=== PATIENT | female | born 1970 | race Caucasian/White ===

== ENCOUNTER 2016-11-22 02:11 | Emergency (ER) | payer OTHER ==
[~2016-11-22] VITALS: Ht 165.1 cm; Wt 70.3 kg
[2016-11-22] MEDS ORDERED: LORAZEPAM1 M1 PO (02:40)
[2016-11-22] MEDS ORDERED: ESCITALOPRAM OX10 MG PO (02:41)
--- NOTE | 2016-11-22 02:42 | ED CARDIAC/CP/PALPITATIONS ---
History of Present Illness General Chief Complaint: Chest Pain Stated Complaint: " CP RADIATES TO LT SIDE OF NECK/ARM [id number] AGO" Source: patient, family Exam Limitations: no limitations Vital Signs & Intake/Output Vital Signs & Intake/Output Vital Signs Date Time Temp Pulse Resp B/P Pulse O2 O2 Flow FiO2 Ox Delivery Rate 11/22 0623 97.7 71 18 125/84 97 Room Air 11/22 0239 Room Air 11/22 0224 70 18 132/87 96 Room Air Allergies Coded Allergies: No Known Allergies (11/22/16) Reconcile Medications Escitalopram Oxalate 10 MG TABLET 10 MG PO DAILY HTN (Reported) Lorazepam 1 MG TABLET 1 MG PO DAILY ANXIETY (Reported) Triage Note: PT TO TRIAGE WITH C/O MIDSTERNAL CHEST PAIN THAT RADIATES UNDERNEATH SHOULDER AND UP NECK TO JAW. PT STATES THE PAIN WOKE HER OUT OF SLEEPING. PMH HTN. PT STATES SHE ATE DINNER AROUND 1700. PT ALSO COMPLAINS OF LIGHTHEADEDNESS. Triage Nurses Notes Reviewed? yes HPI: Patient presents for evaluation of a sudden onset of left chest pain that began while at home while asleep. Patient states the pain lasted for about 2 hours but resolved just after the EKG was taken here in the emergency department. The pain was a moderate to severe constant squeezing pain that radiated to the left side of the neck and into the left axilla. She states she had a prior episode about 3-6 months ago but did not seek care at that point. This pain was more intense than the last. She denies chest pain currently. She is being treated for hypertension. She does not smoke and she denies a family history of coronary artery disease. The pain is not reproducible with palpation. She denies associated dyspnea or diaphoresis. (VINCE FINNEGAN,ANDRY Forde) Past History Travel History Traveled to [place] past 21 day No Medical History Any Pertinent Medical History? see below for history Neurological: NONE EENT: NONE Cardiovascular: hypertension Respiratory: NONE Gastrointestinal: GERD Hepatic: NONE Renal: NONE Musculoskeletal: NONE Psychiatric: anxiety, depression Endocrine: NONE Blood Disorders: NONE Cancer(s): NONE MACHINE WELDER/Reproductive: NONE Psychosocial History What is your primary language Thai Tobacco Use: Never used Family History Hx Contributory? No (VINCE FINNEGAN,ANDRY Forde) Surgical History Surgical History: non-contributory (YORDAN ELKINS MD) Review of Systems Review of Systems Constitutional: Reports: no symptoms. EENTM: Reports: no symptoms. Respiratory: Reports: no symptoms. Cardiovascular: Reports: chest pain. GI: Reports: no symptoms. Genitourinary: Reports: no symptoms. Musculoskeletal: Reports: no symptoms. Skin: Reports: no symptoms. Neurological/Psychological: Reports: no symptoms. Hematologic/Endocrine: Reports: no symptoms. Immunologic/Allergic: Reports: no symptoms. All Other Systems: Reviewed and Negative (VINCE FINNEGAN,ANDRY Forde) Physical Exam Physical Exam Cardiovascular: see below Comments: Gen.: Well-nourished, well-developed, no acute respiratory distress. Head: Normocephalic, atraumatic. Eyes: Normal inspection bilaterally Ears: Normal inspection bilaterally Nose: Normal inspection Throat/mouth : Moist mucosa Neck: Supple, full range of motion, no goiter Heart: Regular rate and rhythm, no murmurs rubs or gallops Lungs: Clear to auscultation bilaterally with normal air entry Chest: Nontender Back: Normal range of motion Abdomen: Soft, nontender, nondistended, normal bowel sounds Extremities: Normal range of motion grossly, equal radial pulses, no cyanosis clubbing or edema, calves nontender Neurologic: Cranial nerves grossly intact, speech is clear Skin: warm and dry Psychiatric: Calm, cooperative, no apparent delusions or hallucinations (VINCE FINNEGAN,ANDRY Forde) Core Measures ACS in differential dx? Yes Severe Sepsis Present: No Septic Shock Present: No (YORDAN ELKINS MD) Progress Differential Diagnosis: AMI, musculoskeletal pain, pneumothorax, unstable angina Plan of Care: Orders Procedure Date/time Status TROPONIN LEVEL 11/22 0630 Complete EKG 11/22 0630 Active Telemetry/Label Drier 11/22 0240 Active TROPONIN LEVEL 11/22 0240 Complete MAGNESIUM 11/22 0240 Complete CBC WITHOUT DIFFERENTIAL 11/22 0240 Complete BASIC METABOLIC PANEL 11/22 0240 Complete EKG 11/22 0214 Active Laboratory Tests 11/22/16 0756: Troponin I < 0.01 11/22/16 0244: Anion Gap 9, Estimated GFR > 60, BUN/Creatinine Ratio 25.0, Glucose 98, Calcium 8.8, Magnesium 2.0, Troponin I < 0.01, CBC w Diff NO MAN DIFF REQ, RBC 4.87, MCV 86.0, MCH 29.2, RDW 12.3, MPV 8.2, Gran % 55.0, Lymphocytes % 31.3, Monocytes % 9.0, Eosinophils % 3.9, Basophils % 0.8, Absolute Granulocytes 3.6, Absolute Lymphocytes 2.0, Absolute Monocytes 0.6, Absolute Eosinophils 0.3, Absolute Basophils 0.1, PUBS MCHC 34.0 Initial ED EKG: NSR, rate (70), LVH Repeat EKG: unchanged Rhythm Strip: normal sinus rhythm Comments: 11/22/2016 3:39:24 AM I have updated DIPTI on her test results. She states that she had a mild episode of chest pain during her ED stay but is now pain free. Plan repeat EKG and troponin. 11/22/2016 7:01:28 AM patient signed out to Dr. Elkins at [facility]. Patient had a vasovagal episode on attempting to draw a repeat troponin. She is currently declining this but hopefully when she recovers from the near syncopal episode she will be amenable to a repeat troponin. (VINCE FINNEGAN,ANDRY Forde) Diagnostic Imaging: Viewed by Me: Radiology Read. Discussed w/RAD: Radiology Read. CXR Impression: no acute abnormality Comments: Chest pain free. 2nd troponin < 0.01. (YORDAN ELKINS MD) Departure Departure Condition: Stable Departure Forms: Customer Survey General Discharge Information (VINCE FINNEGAN,ANDRY Forde) Departure Time of Disposition: 901 Disposition: HOME OR SELF CARE Clinical Impression Primary Impression: Chest pain syndrome Referrals: MINDI FINNEGAN,EG Jj Call for cardiology follow up (YORDAN ELKINS MD) Critical Care Note Critical Care Note Critical Care Time: non-applicable (YORDAN ELKINS MD)
[2016-11-22 02:54] LABS: ABSOLUTE BASOPHIL COUNT 0.1 /CUMM (0.0-0.2); ABSOLUTE EOSINOPHIL COUNT 0.3 /CUMM (0.0-0.7); ABSOLUTE GRANULOCYTE CT 3.6 /CUMM (1.4-6.5); ABSOLUTE MONOCYTE COUNT 0.6 /CUMM (0.10-0.60); BASOPHIL % 0.8 % (0.0-2.0); EOSINOPHIL % 3.9 % (0-5); HEMATOCRIT 41.9 % (37-47); MEAN CORPUSCULAR HGB 29.2 PG (27.0-31.0); MEAN PLATELET VOLUME 8.2 FL (7.4-10.4); PLATELET COUNT 220 /CUMM (130-400); RBC DISTRIBUTION WIDTH 12.3 % (11.5-14.5); RED BLOOD CELL CT 4.87 /CUMM (4.20-5.40); WHITE BLOOD CELL COUNT 6.5 /CUMM (4.8-10.8)
--- NOTE | 2016-11-22 03:56 | RADIOLOGY REPORT ---
EXAMINATION: XR PORTABLE CHEST CLINICAL INFORMATION: Left chest pain COMPARISON: None TECHNIQUE: Portable AP view of the chest was obtained. FINDINGS: The lungs are clear with no focal consolidation. No evidence of pneumothorax, pulmonary edema, or pleural effusions. The cardiomediastinal silhouette is unremarkable. No acute osseous findings. IMPRESSION: No acute cardiopulmonary findings.
[2016-11-22 06:23] VITALS: BP 125/84
== END 2016-11-22 10:42 ==
LOC: ERH 02:11
PROVIDERS: Emergency Medicine
DX: R07.1 Chest pain on breathing (principal)
CPT/HCPCS: 93005; 93010; J3490